=== PATIENT | female | born 1995 | race Caucasian/White ===

== ENCOUNTER 2017-03-16 11:44 | Emergency (ER) | payer BC ==
[2017-03-16 11:59] VITALS: BP 126/78
--- NOTE | 2017-03-16 13:28 | EDM.PDOC ---
ED HPI - General Chief Complaint: KITCHEN LEAD Problem Stated Complaint: vaginal bleeding Time Seen by Provider: 03/16/17 12:05 Source of Information: Reports: Patient History Limitations: Reports: No limitations - History of Present Illness INITIAL COMMENTS - FREE TEXT/NARRATIVE: Samuel is a 22 yo female who presents to the ER with concerns of some vaginal bleeding. States she is 14 weeks and was walking down the hallway in the hospital when she felt a gush of blood. States she has been feeling well and hasn't noticed any abdominal cramping or discomfort. Denies any recent intercourse. States her up till now has been going well. The bleeding has currently stopped. Associated Symptoms: Reports: vaginal bleeding, mild amount. Denies: vaginal tissue, vaginal discharge, large amount - Related Data Allergies/ADRs: Allergies Allergy/AdvReac Type Severity Reaction Status Date / Time clarithromycin [From Biaxin] Allergy Rash Verified 03/16/17 12:02 Home Meds: Home Meds Prenat Vit Comb.10/Iron/Fa/Dha [Vitafol-OB + DHA] 1 tab PO DAILY 03/16/17 [ History] Past Medical History - Past Health History Medical/Surgical History: Denies Medical/Surgical History Social & Family History - Tobacco Use Smoking Status *Q: Never Smoker Second Hand Smoke Exposure: No ED ROS GENERAL - Review of Systems Review Of Systems: ROS reveals no pertinent complaints other than HPI. GI/Abdominal: Reports: No symptoms. Denies: Abdominal pain, Nausea, Vomiting : Denies: discharge, pain ED EXAM - Physical Exam Exam: See Below Exam Limited By: No limitations General Appearance: alert, no apparent distress (resting comfortably on examination table) GI/Abdominal: normal bowel sounds, soft, non tender, no distention, no mass (Female) Exam: deferred for placenta previa heart tones: present heart tones per min: 150 movement: active Neurological: alert, normal cognition Psychiatric: normal affect, normal mood Skin Exam: Warm, Dry, Intact, Normal color, No rash Course - Vital Signs Last Recorded V/S: Last Vital Signs Temp 97.6 F 03/16/17 11:44 Pulse 103 H 03/16/17 11:44 Resp 18 03/16/17 11:44 BP 126/78 03/16/17 11:44 Pulse Ox 99 03/16/17 11:44 - Orders/Labs/Meds Orders: Active Orders 24 hr Category Date Time Status OB 1st Tri Sgl 1st Gest [US] Stat Exams 03/16/17 11:59 Ordered Departure - Departure Time of Disposition: 13:29 Disposition: Home, Self-Care 01 Condition: good Clinical Impression: Subchorionic bleed Qualifiers: Fetus number: single or unspecified fetus Trimester: second trimester Qualified Code(s): O41.8X20 - Other specified disorders of amniotic fluid and membranes, second trimester, not applicable or unspecified Instructions: Subchorionic Hematoma Forms: ED Department Discharge Additional Instructions: 1) May return to normal daily activities; however, refrain from lifting anything over 10 lbs. 2) Pelvic rest 3) If any further bleeding, advise returning for re-evaluation; otherwise, continue with current OB care. - Problem List & Annotations (1) Subchorionic bleed SNOMED Code(s): 417723408 Code(s): O41.8X90 - OTH DISRD OF AMNIOTIC FLUID AND MEMBRNS, UNSP TRI, UNSP; O46.8X9 - OTHER ANTEPARTUM HEMORRHAGE, UNSPECIFIED TRIMESTER Status: Acute Current Visit: Yes Qualifiers: Fetus number: single or unspecified fetus Trimester: second trimester Qualified Code(s): O41.8X20 - Other specified disorders of amniotic fluid and membranes, second trimester, not applicable or unspecified - Problem List Review Problem List Initiated/Reviewed/Updated: Yes - My Orders Last 24 Hours: My Active Orders 03/16/17 11:59 OB 1st Tri Sgl 1st Gest [US] Stat - Assessment/Plan Last 24 Hours: My Active Orders 03/16/17 11:59 OB 1st Tri Sgl 1st Gest [US] Stat Plan: Consulted with Dr. Sherman in regards to Samuel's condition. Advised may return to daily activities with restrictions to not lift anything over 10lbs and pelvic rest. Will follow up with Dr. Sherman on the 27 of March.
== END 2017-03-16 13:30 | disposition home or self-care (01) ==
LOC: CC.ED 11:44
DX: O41.8X20 Other specified disorders of amniotic fluid and membranes, second trimester, not applicable or unspecified (principal); Z88.8 Allergy status to other drugs, medicaments and biological substances; Z3A.14 14 weeks gestation of pregnancy
CPT/HCPCS: 76801; 99284

== ENCOUNTER 2021-12-12 09:25 | Emergency (ER) | payer BC ==
[2021-12-12] MEDS ORDERED: Sodium Chloride 0.9% 1,000 ML IV ONE (09:32)
[2021-12-12] MEDS ORDERED: Ondansetron 4 MG/2 ML SDV IVPUSH ONE (09:32)
[2021-12-12 09:59] LABS: CHLORIDE,CL 102 mEq/L (98-106); SODIUM,NA 138 mEq/L (136-145)
[2021-12-12] MEDS ORDERED: Pantoprazole 40 MG Vial IVPUSH SCH (10:00)
[2021-12-12] MEDS ORDERED: Take Home: Ondansetron 4 MG Tab.DIS, 2 Tab Pack PO ONE (10:33)
[2021-12-12] MEDS ORDERED: Sodium Chloride 0.9% 1,000 ML IV SCH (10:45)
== END 2021-12-12 11:51 | disposition home or self-care (01) ==
LOC: CC.ED 09:25
DX: R11.2 Nausea with vomiting, unspecified (principal); R19.7 Diarrhea, unspecified; E86.0 Dehydration; Z88.1 Allergy status to other antibiotic agents
CPT/HCPCS: 36415; 80053; 81001; 85025; 96374; 96375; 99284-25; A9270-GY; C9113; J2405; J7030

== ENCOUNTER 2021-12-14 06:05 | Emergency (ER) | payer BC ==
[2021-12-14] MEDS ORDERED: Sodium Chloride 0.9% 1,000 ML IV SCH (06:15)
[2021-12-14 07:22] VITALS: BP 119/71; PULSE 91
== END 2021-12-14 07:45 | disposition critical access hospital (66) ==
LOC: CC.ED 06:05
DX: O42.913 Preterm premature rupture of membranes, unspecified as to length of time between rupture and onset of labor, third trimester (principal); Z88.1 Allergy status to other antibiotic agents; Z3A.36 36 weeks gestation of pregnancy
CPT/HCPCS: 99285

== ENCOUNTER 2025-03-14 07:48 | Day surgery (SDC) | payer BC ==
[2025-03-14] MEDS: Lactated Ringers 1,000 ML IV SCH (08:17)
[2025-03-14] MEDS ORDERED: Flumazenil 0.1 MG/ML 5 ML MDV ONE ×3 (08:35)
[2025-03-14] MEDS ORDERED: Propofol 200 MG/20 ML SDV ONE (08:35)
[2025-03-14] MEDS ORDERED: Ketamine 200 MG/20 ML MDV ONE (08:35)
[2025-03-14] MEDS ORDERED: fentaNYL 50 MCG/ML SDV ONE (08:35)
[2025-03-14] MEDS ORDERED: Midazolam 1 MG/ML 2 ML SDV ONE (08:35)
[2025-03-14] MEDS ORDERED: Ondansetron 4 MG/2 ML SDV ONE (08:35)
== END 2025-03-14 09:46 | disposition home or self-care (01) ==
LOC: CC.SDS 07:48
PROVIDERS: ATTEND Family Medicine
DX: K52.9 Noninfective gastroenteritis and colitis, unspecified (principal); F41.8 Other specified anxiety disorders; Z79.899 Other long term (current) drug therapy; Z88.8 Allergy status to other drugs, medicaments and biological substances
CPT/HCPCS: 00811; 36415; 84703; J2250; J2405; J2704; J3010; J3490; J7120